=== PATIENT | male | born 1985 | race Caucasian/White ===

== ENCOUNTER 2016-10-30 08:35 | Emergency (ER) | payer OTHER ==
[~2016-10-30] VITALS: Ht 175.3 cm; Wt 90.7 kg
[2016-10-30 08:42] VITALS: BP 140/85
[2016-10-30] MEDS ORDERED: TETRACAINE HCL/PF 0.5% UD 2 ML BOTTLE ONE (08:56)
[2016-10-30] MEDS ORDERED: FLUORESCEIN SODIUM OPHTH 1 EA STRIP ONE (08:56)
[2016-10-30] MEDS ORDERED: FLUORESCEIN SODIUM OPHTH 1 EA STRIP OP ONE (09:00)
[2016-10-30] MEDS ORDERED: TETRACAINE HCL/PF 0.5% UD 2 ML BOTTLE LEFTEYE ONE (09:00)
== END 2016-10-30 09:12 | disposition home or self-care (01) ==
LOC: ER 08:37
DX: S05.02XA Injury of conjunctiva and corneal abrasion without foreign body, left eye, initial encounter (principal); Z91.010 Allergy to peanuts; Z91.02 Food additives allergy status; X58.XXXA Exposure to other specified factors, initial encounter; Y92.89 Other specified places as the place of occurrence of the external cause; Y93.89 Activity, other specified; Y99.8 Other external cause status
CPT/HCPCS: A4606; Z7610

== ENCOUNTER 2018-04-29 00:36 | Emergency (ER) | payer OTHER ==
[~2018-04-29] VITALS: Ht 175.3 cm; Wt 90.7 kg
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
--- NOTE | 2018-04-29 01:42 | NUR ---
DR. HAN IS AT THE BEDSIDE.
[2018-04-29] MEDS ORDERED: IBUPROFEN 600 MG TABLET PO ONE ×2 (01:53→02:00)
--- NOTE | 2018-04-29 02:33 | NUR ---
PT REC'D A VELCRO SPLINT TO LT WRIST.
[2018-04-29 02:35] VITALS: BP 148/97
== END 2018-04-29 02:47 | disposition home or self-care (01) ==
LOC: ER 00:43
DX: S50.812A Abrasion of left forearm, initial encounter (principal); S60.812A Abrasion of left wrist, initial encounter; Z91.018 Allergy to other foods; Z91.010 Allergy to peanuts; V47.5XXA Car driver injured in collision with fixed or stationary object in traffic accident, initial encounter; Y93.89 Activity, other specified; Y92.413 State road as the place of occurrence of the external cause; Y99.8 Other external cause status
CPT/HCPCS: 29125; 73110; 99283; A4606; Z7610

== ENCOUNTER 2019-08-13 21:15 | Emergency (ER) | payer OTHER ==
[~2019-08-13] VITALS: Ht 175.3 cm; Wt 83.5 kg
[2019-08-13 21:15] VITALS: BP 145/87
--- NOTE | 2019-08-13 21:25 | NUR ---
NAHID REYNOLDS AT BEDSIDE FOR EVAL
[2019-08-13] MEDS ORDERED: LIDOCAINE 1% INJ 50 ML MDV IJ ONE (21:30)
--- NOTE | 2019-08-13 21:31 | NUR ---
NAHDI REYNOLDS AT BEDSIDE
[2019-08-13] MEDS ORDERED: IBUPROFEN 600 MG TABLET PO ONE ×2 (21:35→22:00)
--- NOTE | 2019-08-13 21:57 | NUR ---
Patient discharged to home in stable condition. Written and verbal after care instructions given. Patient verbalizes understanding of instruction.
== END 2019-08-13 21:58 | disposition home or self-care (01) ==
LOC: ER 21:17
DX: S61.210A Laceration without foreign body of right index finger without damage to nail, initial encounter (principal); I10 Essential (primary) hypertension; Z91.018 Allergy to other foods; Z91.010 Allergy to peanuts; W26.8XXA Contact with other sharp object(s), not elsewhere classified, initial encounter; Y93.89 Activity, other specified; Y92.89 Other specified places as the place of occurrence of the external cause; Y99.8 Other external cause status
CPT/HCPCS: 12001; 99282; J3490

== ENCOUNTER 2019-08-21 13:14 | Emergency (ER) | payer OTHER ==
[~2019-08-21] VITALS: Ht 175.3 cm; Wt 83.5 kg
[2019-08-21 13:20] VITALS: BP 134/79
--- NOTE | 2019-08-21 13:29 | NUR ---
Patient discharged to home in stable condition. Written and verbal after care instructions given. Patient verbalizes understanding of instruction. Pt ambulatory with a steady gait
== END 2019-08-21 13:30 | disposition home or self-care (01) ==
LOC: ER 13:14
DX: S61.210D Laceration without foreign body of right index finger without damage to nail, subsequent encounter (principal); I10 Essential (primary) hypertension; Z91.010 Allergy to peanuts; Z91.018 Allergy to other foods; X58.XXXD Exposure to other specified factors, subsequent encounter

== ENCOUNTER 2021-06-11 15:27 | Emergency (ER) | payer OTHER ==
[~2021-06-11] VITALS: Ht 175.3 cm; Wt 83.0 kg
[2021-06-11 15:32] VITALS: BP 125/87
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
[2021-06-11] MEDS ORDERED: PRED5DRO24 RIGHTEYE ×2 (16:30→16:32)
--- NOTE | 2021-06-11 16:38 | NUR ---
Patient discharged to home in stable condition. Written and verbal after care instructions given. Patient verbalizes understanding of instruction.
== END 2021-06-11 16:38 | disposition home or self-care (01) ==
LOC: ER 15:28
DX: H10.11 Acute atopic conjunctivitis, right eye (principal); I10 Essential (primary) hypertension; Z91.018 Allergy to other foods; Z91.010 Allergy to peanuts; Z79.52 Long term (current) use of systemic steroids

== ENCOUNTER 2022-08-07 14:38 | Emergency (ER) | payer OTHER ==
[~2022-08-07] VITALS: Ht 175.3 cm; Wt 94.3 kg
[~2022-08-07 14:38] MED LIST: PRED5DRO24 RIGHTEYE
--- NOTE | 2022-08-07 15:10 | NUR ---
C/O HEADACHE, NAUSEA, FEVER CHILLS AND STIFF NECK SINCE LAST NIGHT.
[2022-08-07] MEDS ORDERED: ACETAMINOPHEN ES 500 MG TABLET PO ONE (15:30)
[2022-08-07] MEDS ORDERED: IV NS 0.9% 1,000 ML BAG IV ONE (15:30)
[2022-08-07] MEDS ORDERED: KETOROLAC TROMETHAMINE INJ 30 MG/ML VIAL IV ONE (15:30)
[2022-08-07] MEDS ORDERED: ONDANSETRON HCL/PF 4 MG/2 ML VIAL IVP ONE (15:30)
--- NOTE | 2022-08-07 15:30 | NUR ---
ESTABLISHED IV LINE 20 G LEFT AC
[2022-08-07] MEDS ORDERED: ONDANSETRON HCL/PF 4 MG/2 ML VIAL ONE (15:43)
[2022-08-07] MEDS ORDERED: KETOROLAC TROMETHAMINE INJ 30 MG/ML VIAL ONE (15:43)
[2022-08-07] MEDS ORDERED: ACETAMINOPHEN ES 500 MG TABLET ONE (15:43)
--- NOTE | 2022-08-07 15:45 | NUR ---
BLOOD SAMPLE OBTAINED AND SENT TO LAB
--- NOTE | 2022-08-07 15:45 | NUR ---
COVID / INFLU SWAB TAKEN SENT TO LAB
[2022-08-07 15:58] LABS: BASOPHILS % (AUTO) 0.2 % (0.0-2.0); HEMATOCRIT 45 % (39-51); HEMOGLOBIN 14.8 g/dL (13.5-17.5); LYMPHOCYTES # (AUTO) 0.7 K/uL (0.8-4.8); LYMPHOCYTES % (AUTO) 6.4 % (20.0-44.0); MEAN CORPUSCULAR HGB CONC 33 g/dl (31.0-36.0); MEAN CORPUSCULAR VOLUME 88 fL (80-96); MONOCYTES # (AUTO) 0.9 K/uL (0.1-1.30); MONOCYTES % (AUTO) 8.1 % (2.0-12.0); NEUTROPHILS # (AUTO) 9.3 K/uL (1.8-8.9); NEUTROPHILS % (AUTO) 85.3 % (43.0-81.0); PLATELET COUNT (AUTO) 192 K/uL (150-450); RED BLOOD CELL COUNT(AUTO) 5.13 MIL/uL (4.5-6.0); WHITE BLOOD COUNT (AUTO) 10.9 K/uL (4.3-11.0)
[2022-08-07 16:16] LABS: CALCIUM, SERUM 9.7 mg/dL (8.5-10.1); CREATININE 1.1 mg/dL (0.6-1.3); POTASSIUM 3.5 mmol/L (3.5-5.1)
[2022-08-07 16:30] LABS: ALBUMIN 3.9 g/dL (3.4-5.0); BILIRUBIN,DIRECT 0.3 mg/dL (0.0-0.2); BILIRUBIN,TOTAL 1.2 mg/dL (0.2-1.0); TOTAL PROTEIN, SERUM 8.6 g/dL (6.4-8.2)
[2022-08-07] MEDS ORDERED: IBUP-1953 PO (18:21)
--- NOTE | 2022-08-07 18:30 | NUR ---
Patient discharged to home in stable condition. Written and verbal after care instructions given. Patient verbalizes understanding of instruction.
--- NOTE | 2022-08-07 18:30 | NUR ---
IV removed. Catheter intact and site benign. Pressure and 4x4 applied to site. No bleeding noted.
[2022-08-07 18:31] VITALS: BP 131/81
== END 2022-08-07 18:31 | disposition home or self-care (01) ==
LOC: ER 14:42
DX: B34.9 Viral infection, unspecified (principal); I10 Essential (primary) hypertension; R51.9 Headache, unspecified; Z79.899 Other long term (current) drug therapy; Z20.822 Contact with and (suspected) exposure to COVID-19; Z91.010 Allergy to peanuts
CPT/HCPCS: 99285; 96374; 70450; 71045; 96361; 87426; 87804 ×2; 85025; 80048; 87040 ×2; 83605; 80076; 36415; 87880; J1885; J2405; J7030; C9803; 86403-TC